=== PATIENT | female | born 1980 | race Caucasian/White ===

== ENCOUNTER 2017-12-20 14:19 | Day surgery (SDC) | payer OTHER ==
--- NOTE | 2017-12-18 20:16 | GHP ---
[f rep st] PREOP HISTORY AND PHYSICAL Surgery is to be scheduled for December. PREOPERATIVE DIAGNOSIS: Abnormal , suspected blighted ovum. SURGERY TO BE PERFORMED: Suction dilation curettage with frozen section to confirm products of crystal ption. HISTORY OF PRESENT ILLNESS: The patient is a 37-year-old 1, para 0 with a last menstrual per iod of 10/29/2017, who originally presented with a positive test and was sent for blood wor k to reassure that it was a normal . Her first beta hCG was drawn on December 12, 2017. It was 3266. Progesterone level was 17.6. A repeat level on 12/14/2017, showed a beta hCG of 3190. Proges terone was 16.2. Because these levels were abnormal, the recommendation was to perform an ultrasound , which was performed today. Ultrasound demonstrated a gestational sac that was measuring 5 weeks 3 days. No yolk sac and no pole were visualized in that sac. There was some complex fluid aroun d the gestational sac that looked like a possible subchorionic hemorrhage. Right ovary was normal. Left ovary had a corpus luteum cyst. There was no free fluid. No other abnormalities visible in the pelvis. The ultrasound is suspicious for blighted ovum; however, she had repeat beta hCG drawn toda y, and it was 3272.1. Progesterone level is 13.4. The patient is completely asymptomatic; is not rai ving bleeding, cramping, or any abdominal pain, or any symptom. She feels that because she is not having pain because the ultrasound is suggestive of blighted ovum and not concerning for an e ctopic . I reviewed treatment options with the patient. Her beta hCG levels have not dropp ed substantially and are concerning for possible ectopic ; however, ultrasound findings and clinical findings are more suggestive of blighted ovum. I offered the patient a course of methotrexa te today, to follow her quantitative beta hCG levels versus performing a suction dilation curettage a nd sending the tissue for frozen section to confirm products of conception. If products of conceptio n are confirmed to be uterine, then we will no longer be concerned for ectopic , and patient has decided that this is the best course for her. Has consented for a suction dilation curettage. Patient has no history. This is her first . PAST GYNECOLOGICAL HISTORY: She has regular periods every 28 days, 7 days of flow. No dysfunctional bleeding. No significant irregularities of in her periods, and this was a planned . Her l ast Pap smear was in July 2017, and was normal. She did have an abnormal Pap in 2001. She had a colposcopy and then it was observed, and they have been normal since. No history of any significant gynecological problems or STDs. PAST MEDICAL HISTORY: Patient has no significant medical history. PAST SURGICAL HISTORY: No significant surgical history. ALLERGIES: No known drug allergies. SOCIAL HISTORY: She is . She lives with her . 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 She is a fo rmer smoker, quit in 2003. Occasional social alcohol use. No drug use and was trying to conceive. FAMILY HISTORY: Significant for a carcinoma in situ of her eye in her mom and depression in her moth er as well as eating disorders, nothing else. REVIEW OF SYSTEMS: Negative. Patient has no significant symptoms today. Feels well. OBJECTIVE: VITAL SIGNS: Today, blood pressure is 104/52, weight is 147 pounds. IN GENERAL: She is a well-developed, thin, white female in no acute distress. LUNGS: Clear to auscultation bilaterall y. HEART: Regular rate and rhythm. No murmurs. ABDOMEN: Soft, nontender, nondistended. Normal b owel sounds. PELVIC: Deferred today. Ultrasound findings are as above. ASSESSMENT AND PLAN: 37-year-old 1, para 0 at 7-2/7 weeks' gestation by dates with an abnorm al , blighted ovum versus an ectopic. Hormone levels are suspicious for ectopic ; however, clinical picture and ultrasound are suspicious for blighted ovum. Patient elected to have a suction dilation curettage for confirmation of products of conception. The patient was consented fo r the procedure. She understood the risks and benefits. The risks including bleeding, infection, da mage to organs including the uterus, possible risk of damage to other organs if perforation were to o ccur, risk of incomplete procedure, needing additional procedures at a later time, and risk of compro mise of future fertility, and/or needing methotrexate at a later time. She understood these risks an d benefits and agreed to proceed. /[id number]/MODL
[~2017-12-20 14:19] MED LIST: DOXYCYCLINE HYCLATE 100 MG CAP/TAB ONE; DOXYCYCLINE HYCLATE 100 MG CAP/TAB PO ONE; LR 1,000 ML IV ONE
[2017-12-20] MEDS ORDERED: DOXYCYCLINE HYCLATE 100 MG CAP/TAB PO ONE (14:30)
--- NOTE | 2017-12-20 15:09 | PDANEPAE ---
ANE History of Present Illness 7 wk missed ab ANE Past Medical History Past Medical History: neg - Pulmonary History Hx Sleep Apnea: No Sleep Apnea Screening Result - Last Documented: Negative ANE Review of Systems Review of systems is: negative Review of Systems: ANE Patient History - Allergies Allergies/Adverse Reactions: No Known Allergies Allergy (Unverified 12/19/17 20:23) - NPO status NPO Since - Liquids (Date): 12/20/17 NPO Since - Liquids (Time): 11:00 NPO Since - Solids (Date): 12/20/17 NPO Since - Solids (Time): 07:00 - Anes Hx Anes Hx: no prior problems (dental), post operative nausea - Smoking Hx Smoking Status: Never smoked Marijuana use: No - Alcohol Use Alcohol Use: None - Family Anes Hx Family Anes Hx: none ANE Labs/Vital Signs - Vital Signs Blood Pressure: 114/76 Heart Rate: 63 Respiratory Rate: 16 O2 Sat (%): 100 Height: 177.8 cm Weight: 67.585 kg ANE Physical Exam - Airway Neck exam: FROM Mallampati Score: Class 2 Mouth exam: normal dental/mouth exam - Pulmonary Pulmonary: no respiratory distress - Cardiovascular Cardiovascular: regular rate and rhythym - ASA Status ASA Status: II ANE Anesthesia Plan Anesthesia Plan: MAC
[2017-12-20] MEDS ORDERED: MIDAZOLAM 2 MG/2 ML VIAL ONE (15:11)
[2017-12-20] MEDS ORDERED: fentaNYL 100 MCG/2 ML INJ ONE (15:11)
[2017-12-20] MEDS ORDERED: PROPOFOL/EMULSION 500 MG/50 ML BOTTLE IV ONE (15:12)
[2017-12-20] MEDS ORDERED: LIDOCAINE 2% 5 ML SDV ONE (15:12)
[2017-12-20] MEDS ORDERED: ONDANSETRON 4 MG/2 ML VIAL ONE (15:12)
[2017-12-20] MEDS ORDERED: PROPOFOL 200 MG/20 ML VIAL ONE (15:59)
[2017-12-20] MEDS ORDERED: fentaNYL 100 MCG/2 ML INJ IVP PRN (16:34)
[2017-12-20] MEDS ORDERED: PHENYLEPHRINE HCL 100 MCG/ML SYR IVP PRN (16:34)
[2017-12-20] MEDS ORDERED: PROMETHAZINE HCL 25 MG/ML INJ IVP PRN (16:34)
[2017-12-20] MEDS ORDERED: ACETAMINOPHEN 500 MG TAB PO PRN (16:34)
[2017-12-20] MEDS ORDERED: MEPERIDINE 25 MG/0.5 ML AMP IVP PRN (16:34)
[2017-12-20] MEDS ORDERED: ONDANSETRON 4 MG/2 ML VIAL IVP PRN (16:34)
[2017-12-20] MEDS ORDERED: HYDROCODONE/APAP 5/325 TAB PO PRN (16:34)
[2017-12-20] MEDS ORDERED: NALOXONE HCL 0.4 MG/ML INJ IVP PRN (16:34)
--- NOTE | 2017-12-20 16:36 | POSTANESTH ---
Post Anesthetic Evaluation Cardiovascular Status: Normal, Stable Respiratory Status: Normal, Stable Level of Consciousness/Mental Status: Can Participate in Eval Pain Control: Adequate, Prn Tx Ordered Nausea/Vomiting Control: Adequate, Prn Tx Ordered Complications Possibly Related to Anesthesia: None Noted (awake and talking in PACU, uneventful recovery)
--- NOTE | 2017-12-20 17:00 | POSTOPPROG ---
Post Op Note Date of Operation: 12/20/17 Surgeon: Marie Hicks Anesthesiologist: Elier Marti MD Anesthesia: IV Sedation Pre-op Diagnosis: MAB at 6 wks, cannot r/o ectopic Post-op Diagnosis: same, Preg tissue confirmed by frozen section Indication: platueaed HCG levels with sac in uterus, possible ectopic with pseudosac Procedure: D and C Findings: cx dilated to 7.5 Beatriz, 7 tip on suction used and mod tissue. nl crie Inf/Abcess present in the surg proc area at time of surgery?: No Depth: Organ Space EBL: Minimal Total fluids administered: 900cc Complications: none, tissue sent for frozen section Specimen(s): POCs
[2017-12-20] MEDS ORDERED: KETOROLAC 30 MG/1 ML SDV IVP ONE (17:09)
[2017-12-20 17:20] VITALS: BP 109/73
== END 2017-12-20 17:40 | disposition home or self-care (01) ==
LOC: FSGY 14:19
PROVIDERS: ATTEND Obstetrics & Gynecology
PROC: 10D17ZZ Extraction of Products of Conception, Retained, Via Natural or Artificial Opening (ICD-10-PCS; principal; 2017-12-20)
DX: O03.9 Complete or unspecified spontaneous abortion without complication (principal); N83.12 Corpus luteum cyst of left ovary
CPT/HCPCS: J1885; J2250; J2405; J2704; J3010

== ENCOUNTER 2018-11-07 06:00 | Inpatient (IN) | payer OTHER ==
[2018-11-07] MEDS ORDERED: LIDOCAINE 1% 300 MG/30 ML SDV SC PRN (06:46)
[2018-11-07] MEDS ORDERED: OXYTOCIN/RINGERS LACTATE 500 ML IV SCH (06:46)
[2018-11-07] MEDS ORDERED: EPSOM SALT 454 GM TP PRN (06:46)
[2018-11-07] MEDS ORDERED: OLIVE OIL 118 ML BTL MISC PRN (06:46)
[2018-11-07] MEDS ORDERED: LR 1,000 ML IV PRN (06:46)
[2018-11-07] MEDS ORDERED: LR 500 ML IV PRN (06:46)
[2018-11-07] MEDS ORDERED: MISOPROSTOL 200 MCG TAB PR PRN (06:46)
[2018-11-07] MEDS ORDERED: OXYTOCIN/RINGERS LACTATE 1,000 ML IV PRN (06:46)
[2018-11-07] MEDS ORDERED: IBUPROFEN 600 MG TAB PO PRN (06:46)
[2018-11-07 07:23] LABS: PLATELET COUNT 207 10^3/uL (150-400)
[2018-11-07] MEDS ORDERED: AMMONIA AROMATIC 1 EACH AMP IH ONE (11:24)
[2018-11-07] MEDS ORDERED: LIDOCAINE 1% 300 MG/30 ML SDV ONE (11:24)
[2018-11-07] MEDS ORDERED: TERBUTALINE SULFATE 1 MG/ML VIAL ONE (11:24)
[2018-11-07] MEDS ORDERED: OLIVE OIL 118 ML BTL MISC ONE (11:24)
[2018-11-07] MEDS ORDERED: MISOPROSTOL 200 MCG TAB ONE (11:25)
[2018-11-07] MEDS ORDERED: OXYTOCIN 10 UNIT/ML VIAL ONE (11:25)
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
[2018-11-07] MEDS ORDERED: PHENYLEPHRINE HCL 100 MCG/ML SYR IVP PRN (12:20)
[2018-11-07] MEDS ORDERED: NALOXONE HCL 0.4 MG/ML INJ IVP PRN (12:20)
[2018-11-07] MEDS ORDERED: METOCLOPRAMIDE 10 MG/2 ML VIAL IVP PRN (12:20)
[2018-11-07] MEDS ORDERED: ONDANSETRON 4 MG/2 ML VIAL IVP PRN (12:20)
--- NOTE | 2018-11-07 12:20 | PREANESOB ---
Obstetric Pre-Anesthesia Info - General Info : 1 Para: 0 JOSE ANTONIO: 10/29/18 Gestational Age: 41 week(s) and 2 day(s) - Labor Status Labor Epidural: Proposed Anesthesia Allergies/Adverse Reactions: Allergy/AdvReac Type Severity Reaction Status Date / Time No Known Allergies Allergy Unverified 12/19/17 20:23 Visit Medications: Generic Name Dose Route Start Last Admin Trade Name Freq PRN Reason Stop Dose Admin Lactated Ringer's 1,000 mls @ 0 mls/hr 11/07/18 06:46 11/07/18 07:56 Lr IV 11/08/18 06:45 1,000 mls PRN PRN Administration SEE PROTOCOL CONDITIONS Protocol Per Protocol Oxytocin/Lactated Ringer's 500 mls @ 0 mls/hr 11/07/18 06:46 11/07/18 07:56 Pitocin 30 Units/Lr (Premix) IV 05/06/19 06:45 500 mls CONT JAMESON Administration Protocol Per Protocol Oxytocin/Lactated Ringer's 1,000 mls @ 125 mls/hr 11/07/18 06:46 Pitocin 20 Units/Lr (Premix) IV PRN PRN Post bleeding Ibuprofen 600 mg 11/07/18 06:46 Motrin PO ONCE PRN post , pain Lidocaine HCl 300 mg 11/07/18 06:46 Lidocaine Hcl 1% SC 05/06/19 06:45 ONCE PRN episiotomy Magnesium Sulfate 454 gm 11/07/18 06:46 Epsom Salt TP 05/06/19 06:45 Q1H PRN perineal discomfort Misoprostol 800 - 1,000 mcg 11/07/18 06:46 Cytotec MA ONCE PRN Vaginal Atony/Bleeding Trappe Oil 118 ml 11/07/18 06:46 Sweet Oil MISC 05/06/19 06:45 ONCE PRN perineal massage Discontinued Medications Generic Name Dose Route Start Last Admin Trade Name Freq PRN Reason Stop Dose Admin Ammonia (Aromatic Spirit) Confirm 11/07/18 11:24 Ammonia Aromatic Administered 11/07/18 11:25 Dose 1 each IH .STK-MED ONE Lactated Ringer's 500 mls @ 500 mls/hr 11/07/18 06:46 Lr IV 11/07/18 08:27 PRN PRN Maternal Hypotension Lidocaine HCl Confirm 11/07/18 11:24 Lidocaine Hcl 1% Administered 11/07/18 11:25 Dose 300 mg .ROUTE .STK-MED ONE Misoprostol Confirm 11/07/18 11:25 Cytotec Administered 11/07/18 11:26 Dose 1,000 mcg .ROUTE .STK-MED ONE Trappe Oil Confirm 11/07/18 11:24 Sweet Oil Administered 11/07/18 11:25 Dose 118 ml MISC .STK-MED ONE Oxytocin Confirm 11/07/18 11:25 Pitocin Administered 11/07/18 11:26 Dose 40 unit .ROUTE .STK-MED ONE Terbutaline Sulfate Confirm 11/07/18 11:24 Brethine Administered 11/07/18 11:25 Dose 1 mg .ROUTE .STK-MED ONE - Anesthesia History Response to Local Anesthetics: Normal Anesthesia & Operative History: No Prior Problems Family Anesthesia History: Negative - Social History Substance Use/Abuse: Denies - Vital Signs Height/Weight (Nursing): Height 177.8 cm Weight 84.822 kg Labs: 11/07/18 06:45 Patient ABO/Rh A POSITIVE 11/07/18 06:45 - Plan Consent Signed and on Chart: Yes Patient/Guardian Understands and Agrees to Plan: Yes
[2018-11-07] MEDS ORDERED: fentaNYL 100 MCG/2 ML INJ ONE (12:22)
[2018-11-07] MEDS ORDERED: PHENYLEPHRINE HCL 100 MCG/ML SYR ONE (12:22)
[2018-11-07] MEDS ORDERED: LR 500 ML IV SCH (12:30)
[2018-11-07] MEDS ORDERED: fentaNYL 2MCG/ML/BUP 0.1% RTU 100 ML EP SCH (12:30)
[2018-11-07] MEDS ORDERED: fentaNYL 200 MCG, BUPIVACAINE 0.5% 20 ML in NS 100 ML EP SCH (13:00)
--- NOTE | 2018-11-07 13:02 | OBPROG ---
Labor Progress Note Assessment/Plan: Assessment: Plan: Subjective/Intrapartum Course: 11/07/18 12:56 patient was very uncomfortable and requested an epidural. epidural placed. patient comfortable with epidural now. will place taylor. SVE 4/80/-2. status reassuring. pitocin is at 10 mu. will reexamine in a few hours or sooner if indicated. Objective: 11/07/18 06:45 Patient ABO/Rh A POSITIVE 11/07/18 06:45 - SVE Dilation (cm): 4 Effacement (%): 80 Station: -2 Membranes: AROM Amniotic Fluid Color: Clear - Contraction Pattern Assessment Current Contraction Pattern: Regular - FHR Assessment Kam FHR Pattern Variability: Moderate FHR Category: 1 - Procedures Non-surgical Procedures: Amniotomy - AP Antepartum Course: 11/07/18 13:02 hx blighted ovum with g1. established care with [facility] in first trimester. dated by lmp = 12 week. taylor bulb placed at 41 2/7 weeks. presents for induction of labor for post dates. Oxytocin Orders Assessment - Pre-Induction/Augmentation Assessment Gestational Age: 41 week(s) and 2 day(s) ICD10 Worksheet Patient Problems: Problems Problem Status Onset Missed Acute S/P dilation and curettage Acute
--- NOTE | 2018-11-07 15:39 | OBPROG ---
Labor Progress Note Assessment/Plan: Assessment: Plan: Subjective/Intrapartum Course: 11/07/18 12:56 patient was very uncomfortable and requested an epidural. epidural placed. patient comfortable with epidural now. will place taylor. SVE 4/80/-2. status reassuring. pitocin is at 10 mu. will reexamine in a few hours or sooner if indicated. 11/07/18 15:35 patient comfortable with epidural. pitocin just increased to 14 mu. contractions appeared to be spaced. minimal change in cervix. IUPC placed without difficulty. will continue to increase pitocin as needed and monitor status. Objective: 11/07/18 06:45 Patient ABO/Rh A POSITIVE 11/07/18 06:45 - SVE Dilation (cm): 4, 5 Effacement (%): 80 Station: -2 Membranes: AROM Amniotic Fluid Color: Clear - Contraction Pattern Assessment Current Contraction Pattern: Regular - FHR Assessment Kam FHR Pattern Variability: Moderate FHR Category: 2 - Procedures Non-surgical Procedures: Amniotomy, IUPC - AP Antepartum Course: 11/07/18 13:02 hx blighted ovum with g1. established care with [facility] in first trimester. dated by lmp = 12 week. taylor bulb placed at 41 2/7 weeks. presents for induction of labor for post dates. Oxytocin Orders Assessment - Pre-Induction/Augmentation Assessment Gestational Age: 41 week(s) and 2 day(s) ICD10 Worksheet Patient Problems: Problems Problem Status Onset Missed Acute S/P dilation and curettage Acute
--- NOTE | 2018-11-07 18:26 | OBPROG ---
Labor Progress Note Assessment/Plan: Assessment: Plan: Subjective/Intrapartum Course: 11/07/18 12:56 patient was very uncomfortable and requested an epidural. epidural placed. patient comfortable with epidural now. will place taylor. SVE 480/-2. status reassuring. pitocin is at 10 mu. will reexamine in a few hours or sooner if indicated. 11/07/18 15:35 patient comfortable with epidural. pitocin just increased to 14 mu. contractions appeared to be spaced. minimal change in cervix. IUPC placed without difficulty. will continue to increase pitocin as needed and monitor status. 11/07/18 18:23 patient having a window of pain on the left side. bolus button pushed. overall status reassuring. having some late decelerations when in certain positions. will reposition once pain window has resolved. pitocin is at 14 mu. Objective: 11/07/18 06:45 Patient ABO/Rh A POSITIVE 11/07/18 06:45 - SVE Dilation (cm): 7 Effacement (%): 90 Station: 0 Membranes: AROM Amniotic Fluid Color: Clear - Contraction Pattern Assessment Current Contraction Pattern: Regular - Procedures Non-surgical Procedures: Amniotomy, IUPC - AP Antepartum Course: 11/07/18 13:02 hx blighted ovum with g1. established care with [facility] in first trimester. dated by lmp = 12 week. taylor bulb placed at 41 2/7 weeks. presents for induction of labor for post dates. Oxytocin Orders Assessment - Pre-Induction/Augmentation Assessment Gestational Age: 41 week(s) and 2 day(s) ICD10 Worksheet Patient Problems: Problems Problem Status Onset Missed Acute S/P dilation and curettage Acute
[2018-11-07] MEDS ORDERED: BUPIVACAINE 0.25% 10 ML SDV ONE (18:52)
[2018-11-07] MEDS ORDERED: ACETAMINOPHEN 500 MG TAB PO ONE (19:15)
--- NOTE | 2018-11-07 20:05 | OBPROG ---
Labor Progress Note Assessment/Plan: Assessment: Plan: Subjective/Intrapartum Course: 11/07/18 12:56 patient was very uncomfortable and requested an epidural. epidural placed. patient comfortable with epidural now. will place taylor. SVE 4/80/-2. status reassuring. pitocin is at 10 mu. will reexamine in a few hours or sooner if indicated. 11/07/18 15:35 patient comfortable with epidural. pitocin just increased to 14 mu. contractions appeared to be spaced. minimal change in cervix. IUPC placed without difficulty. will continue to increase pitocin as needed and monitor status. 11/07/18 18:23 patient having a window of pain on the left side. bolus button pushed. overall status reassuring. having some late decelerations when in certain positions. will reposition once pain window has resolved. pitocin is at 14 mu. 11/07/18 20:04 patient was in hands and knees and began feeling more rectal pressure with contractions. sve complete and 0 station. status reassuring overall. occasional variable and lates. began pushing. will continue pushing. Objective: 11/07/18 06:45 Patient ABO/Rh A POSITIVE 11/07/18 06:45 - SVE Dilation (cm): 10 Effacement (%): 100 Station: +1 Membranes: AROM Amniotic Fluid Color: Clear Dilation Complete Date: 11/07/18 - Contraction Pattern Assessment Current Contraction Pattern: Regular - Procedures Non-surgical Procedures: Amniotomy, IUPC - AP Antepartum Course: 11/07/18 13:02 hx blighted ovum with g1. established care with [facility] in first trimester. dated by lmp = 12 week. taylor bulb placed at 41 2/7 weeks. presents for induction of labor for post dates. Oxytocin Orders Assessment - Pre-Induction/Augmentation Assessment Gestational Age: 41 week(s) and 2 day(s) ICD10 Worksheet Patient Problems: Problems Problem Status Onset Missed Acute S/P dilation and curettage Acute
--- NOTE | 2018-11-07 22:05 | OBDEL ---
Info Type: Vaginal Presentation at Delivery: Vertex L&D Analgesia/Anesthesia Type: Epidural GBS+: No Intrapartum Medications: Generic Name Dose Route Start Last Admin Trade Name Freq PRN Reason Stop Dose Admin Lactated Ringer's 1,000 mls @ 0 mls/hr 11/07/18 06:46 11/07/18 07:56 Lr IV 11/08/18 06:45 1,000 mls PRN PRN Administration SEE PROTOCOL CONDITIONS Protocol Per Protocol Oxytocin/Lactated Ringer's 500 mls @ 0 mls/hr 11/07/18 06:46 11/07/18 07:56 Pitocin 30 Units/Lr (Premix) IV 05/06/19 06:45 500 mls CONT JAMESON Administration Protocol Per Protocol - Hospital Course Intrapartum: 11/07/18 12:56 patient was very uncomfortable and requested an epidural. epidural placed. patient comfortable with epidural now. will place taylor. SVE 4/80/-2. status reassuring. pitocin is at 10 mu. will reexamine in a few hours or sooner if indicated. 11/07/18 15:35 patient comfortable with epidural. pitocin just increased to 14 mu. contractions appeared to be spaced. minimal change in cervix. IUPC placed without difficulty. will continue to increase pitocin as needed and monitor status. 11/07/18 18:23 patient having a window of pain on the left side. bolus button pushed. overall status reassuring. having some late decelerations when in certain positions. will reposition once pain window has resolved. pitocin is at 14 mu. 11/07/18 20:04 patient was in hands and knees and began feeling more rectal pressure with contractions. sve complete and 0 station. status reassuring overall. occasional variable and lates. began pushing. will continue pushing. Indications for Delivery: Elective (post dates) Vaginal Delivery - Delivery Provider Delivery Physician/CNM: Mary Chow - Labor and Delivery Onset of Contractions Date: 10/31/18 Onset of Contractions Time: 10:00 Onset of Contractions Type: Induced Rupture of Membranes Date: 11/07/18 Rupture of Membranes Time: 09:50 Rupture of Membranes Type: Artificial Amniotic Fluid Color: Clear Dilation Complete Date: 11/07/18 Dilation Complete Time: 19:52 Placenta Delivery Date: 11/07/18 Placenta Delivery Time: 21:30 Total Hours of Labor: 179 Non-surgical Procedures: Amniotomy, IUPC Laceration: 2nd Degree, Other (Specify) (bilateral vaginal sulcus) Repair: 3-0 Vaginal Sponge Count Correct: Yes Vaginal Needle Count Correct: Yes Vaginal Sweep Performed: Yes EBL: 300 Delivery Events: Nuchal Cord - Medications Labor Augmentation/Induction Methods Used: Pitocin Labor Augmentation/Induction Indication: Elective (post dates) Data JOSE ANTONIO: 10/29/18 Gestational Age: 41 week(s) and 2 day(s) Kam Delivery Date: 11/07/18 Delivery Time: 21:25 Sex of : Male Score (1 Min): 8 Score (5 Min): 8 ICD10 Worksheet Patient Problems: Problems Problem Status Onset Missed Acute S/P dilation and curettage Acute
[2018-11-07] MEDS ORDERED: oxyCODONE IR 5 MG TAB PO PRN (22:17)
[2018-11-07] MEDS ORDERED: HYDROCORTISONE 0.5% CREAM TP PRN (22:17)
[2018-11-08] MEDS ORDERED: AMMONIA AROMATIC 1 EACH AMP IH ONE (00:48)
[2018-11-08] MEDS: IBUPROFEN 600 MG TAB PO PRN ×3 (10:16→21:37)
--- NOTE | 2018-11-08 11:54 | OBPP ---
Progress Note Assessment/Plan: Assessment: 38 y/o PPD #1 s/p IOL secondary to post dates. Plan: Routine PPC and support. Anticipate d/c home tomorrow. 11/08/18 11:54 Subjective/ Course: 11/08/18 11:52 Pt is doing well this am. She has good pain control with Ibuprofen and Tylenol. She has ambulated and voided and has min lochia. Baby is breast feeding and doing well. Objective: 11/07/18 06:45 Patient ABO/Rh A POSITIVE 11/07/18 06:45 Uterine Position/Fundal Height: Umbilicus -2 Uterine Tone: Firm Physical Exam - Physical Exam General Appearance: WD/WN, alert, no apparent distress Neck: non-tender, full range of motion, supple Respiratory: chest non-tender, lungs clear, normal breath sounds Cardiac/Chest: regular rate, rhythm Abdomen: normal bowel sounds Extremities: swelling (no), Sergio's sign (neg)
--- NOTE | 2018-11-08 13:24 | POSTANESTH ---
Post Anesthetic Evaluation Cardiovascular Status: Normal, Stable Respiratory Status: Normal, Stable Level of Consciousness/Mental Status: Can Participate in Eval Pain Control: Adequate, Prn Tx Ordered Nausea/Vomiting Control: Adequate, Prn Tx Ordered Complications Possibly Related to Anesthesia: None Noted
[2018-11-08] MEDS: ACETAMINOPHEN 325 MG TAB PO PRN ×2 (16:04→21:36)
[2018-11-08] MEDS: DOCUSATE SODIUM 100 MG CAP PO PRN (21:36)
[2018-11-09] MEDS: ACETAMINOPHEN 325 MG TAB PO PRN ×2 (05:50→12:04)
[2018-11-09] MEDS: IBUPROFEN 600 MG TAB PO PRN ×2 (05:50→12:03)
[2018-11-09 08:03] VITALS: BP 110/72
[2018-11-09] MEDS: DOCUSATE SODIUM 100 MG CAP PO PRN (08:04)
--- NOTE | 2018-11-09 09:18 | OBPP ---
Progress Note Assessment/Plan: Assessment: 38 y/o G3 now P1 s/p PPD #2 - pt is stable Plan: Plan for d/c home later today Instructions reviewed with the pt No Rx given Cont PNV, Motrin, and colace prn Pelvic rest RTC in 3 weeks for a mood check and 6 weeks for a pp visit 11/09/18 09:18 Subjective/ Course: 11/08/18 11:52 Pt is doing well this am. She has good pain control with Ibuprofen and Tylenol. She has ambulated and voided and has min lochia. Baby is breast feeding and doing well. 11/09/18 09:20 Pt seen and examined. Doing well, slept for a few hours. She is sore down below due to to tear and stitches. Relief with Motrin and using a donut. Pt is OOB, becca regular diet, voiding and passing flatus. Had a BM after delivery. Mod lochia. She is working with on baby's boy latch. Ready to go home today. Objective: 11/07/18 06:45 Patient ABO/Rh A POSITIVE 11/07/18 06:45 Temp Pulse Resp BP Pulse Ox 36.4 C 82 16 110/72 96 11/09/18 08:01 11/09/18 08:01 11/09/18 08:01 11/09/18 08:01 11/09/18 08:01 Uterine Position/Fundal Height: Umbilicus -2 Uterine Tone: Firm Physical Exam - Physical Exam General Appearance: WD/WN, alert, no apparent distress Respiratory: lungs clear, normal breath sounds Cardiac/Chest: regular rate, rhythm Abdomen: normal bowel sounds, non-tender, soft, flatus (+) Extremities: non-tender, normal inspection Skin: normal color, warm/dry Neuro/Psych: alert, normal mood/affect, oriented x 3
--- NOTE | 2018-11-09 09:23 | OBGCSDC ---
General Delivery Information - General Info : 1 Para: 1 Abortions: 0 Type: Vaginal L&D Analgesia/Anesthesia Type: Epidural Admission Date: 11/07/18 Labs: Patient ABO/Rh A POSITIVE 11/07/18 06:45 Hct 39.9 % (38.0-47.0) 11/07/18 06:45 - Hospital Course Antepartum: 11/07/18 13:02 hx blighted ovum with g1. established care with [facility] in first trimester. dated by lmp = 12 week. taylor bulb placed at 41 2/7 weeks. presents for induction of labor for post dates. Intrapartum: 11/07/18 12:56 patient was very uncomfortable and requested an epidural. epidural placed. patient comfortable with epidural now. will place taylor. SVE 480/-2. status reassuring. pitocin is at 10 mu. will reexamine in a few hours or sooner if indicated. 11/07/18 15:35 patient comfortable with epidural. pitocin just increased to 14 mu. contractions appeared to be spaced. minimal change in cervix. IUPC placed without difficulty. will continue to increase pitocin as needed and monitor status. 11/07/18 18:23 patient having a window of pain on the left side. bolus button pushed. overall status reassuring. having some late decelerations when in certain positions. will reposition once pain window has resolved. pitocin is at 14 mu. 11/07/18 20:04 patient was in hands and knees and began feeling more rectal pressure with contractions. sve complete and 0 station. status reassuring overall. occasional variable and lates. began pushing. will continue pushing. : 11/08/18 11:52 Pt is doing well this am. She has good pain control with Ibuprofen and Tylenol. She has ambulated and voided and has min lochia. Baby is breast feeding and doing well. 11/09/18 09:20 Pt seen and examined. Doing well, slept for a few hours. She is sore down below due to to tear and stitches. Relief with Motrin and using a donut. Pt is OOB, becca regular diet, voiding and passing flatus. Had a BM after delivery. Mod lochia. She is working with on baby's boy latch. Ready to go home today. Vaginal - Delivery Provider Delivery Physician/CNM: Mary Chow - Diagnosis Labor: Induced Rupture of Membranes Type: Artificial Amniotic Fluid Color: Clear Laceration: 2nd Degree, Other (Specify) (bilateral vaginal sulcus) Repair: 3-0 Delivery Events: Nuchal Cord - Procedures Non-surgical Procedures: Amniotomy, IUPC - Delivery Non-surgical Procedures: Amniotomy, IUPC EBL: [address] Data JOSE ANTONIO: 10[birth year] Gestational Age: 41 week(s) and 4 day(s) Kam Delivery Date: 11/07/18 Delivery Time: 21:25 Sex of : Male Score (1 Min): 8 Score (5 Min): 8 Discharge Information - Discharge Information Instruction/Follow Up: Four Weeks (3 weeks for a mood check), Six Weeks (for a routine pp visit)
== END 2018-11-09 15:40 | disposition home or self-care (01) | DRG 807 ==
LOC: FLD 06:00 → FOB 11-08 06:20
PROVIDERS: ADMIT Obstetrics & Gynecology; ATTEND Obstetrics & Gynecology
PROC: 3E033VJ Introduction of Other Hormone into Peripheral Vein, Percutaneous Approach (ICD-10-PCS; principal; 2018-11-07)
PROC: 0KQM0ZZ Repair Perineum Muscle, Open Approach (ICD-10-PCS; principal; 2018-11-07)
PROC: 10E0XZZ Delivery of Products of Conception, External Approach (ICD-10-PCS; principal; 2018-11-07)
PROC: 10907ZC Drainage of Amniotic Fluid, Therapeutic from Products of Conception, Via Natural or Artificial Opening (ICD-10-PCS; principal; 2018-11-07)
DX: O48.0 Post-term pregnancy (principal); Z37.0 Single live birth; Z3A.41 41 weeks gestation of pregnancy; O70.1 Second degree perineal laceration during delivery; O69.82X0 Labor and delivery complicated by other cord entanglement, without compression, not applicable or unspecified
CPT/HCPCS: J2370; J2590; J3010; J3105